=== PATIENT | female | born 1975 | race Caucasian/White ===

== ENCOUNTER 2019-05-25 18:00 | Emergency (ER) | payer MEDICAID, OTHER ==
[~2019-05-25] VITALS: Ht 167.6 cm; Wt 109.1 kg
[~2019-05-25 18:00] MED LIST: HTN MED PO; LISI5TAB PO
[2019-05-25] MEDS ORDERED: BENZONATATE 100 MG CAPSULE PO ONE (19:15)
[2019-05-25] MEDS ORDERED: BENZOCAINE/MENTHOL LOZENGE PO ONE (19:15)
[2019-05-25 20:59] VITALS: BP 144/99
== END 2019-05-25 21:04 | disposition home or self-care (01) ==
LOC: EMS 18:03
DX: J11.1 Influenza due to unidentified influenza virus with other respiratory manifestations (principal); I10 Essential (primary) hypertension; Z98.890 Other specified postprocedural states